=== PATIENT | female | born 1960 | race Caucasian/White ===

== ENCOUNTER 2019-03-27 07:06 | Day surgery (SDC) | payer OTHER ==
[~2019-03-27 07:06] MED LIST: Bupivacaine 0.5% 50 ML MDV ONE; Isosulfan Blue 5 ML SDV ONE; Lidocaine 1% with EPINEPHrine 1:100,000 50 ML MDV ONE; Lidocaine 2% 20 ML MDV INJECT ONE
[2019-03-27] MEDS ORDERED: Sodium Chloride 0.9% 1,000 ML IV SCH (07:30)
[2019-03-27] MEDS ORDERED: Benzocaine/Cetylpyridinium/Menthol Lozenge MUCMEM PRN (08:04)
[2019-03-27] MEDS ORDERED: diphenhydrAMINE 50 MG/ML SDV IVPUSH PRN (08:04)
[2019-03-27] MEDS ORDERED: Promethazine 25 MG/ML SDV IM PRN (08:04)
[2019-03-27] MEDS ORDERED: hydrOXYzine HCl 100 MG/2 ML SDV IM PRN (08:04)
[2019-03-27] MEDS ORDERED: Ondansetron 4 MG/2 ML SDV IVPUSH PRN (08:04)
[2019-03-27] MEDS ORDERED: fentaNYL 100 MCG/2 ML SDV IVPUSH PRN ×2 (08:04)
[2019-03-27] MEDS ORDERED: Acetaminophen/HYDROcodone 325-5 MG Tab PO PRN ×2 (08:04)
[2019-03-27] MEDS ORDERED: Lidocaine 1% 20 ML MDV INJECT ONE (08:19)
[2019-03-27] MEDS ORDERED: Propofol 200 MG/20 ML SDV ONE ×2 (09:03→10:20)
[2019-03-27] MEDS ORDERED: Midazolam 1 MG/ML 2 ML SDV ONE (09:04)
[2019-03-27] MEDS ORDERED: fentaNYL 100 MCG/2 ML SDV ONE (10:26)
[2019-03-27] MEDS ORDERED: Succinylcholine 200 MG/10 ML MDV ONE (10:31)
[2019-03-27] MEDS ORDERED: Ondansetron 4 MG/2 ML SDV ONE (10:37)
[2019-03-27] MEDS ORDERED: Dexamethasone 4 MG/ML SDV ONE (10:37)
[2019-03-27] MEDS ORDERED: Rocuronium 50 MG/5 ML Vial ONE (10:40)
[2019-03-27] MEDS ORDERED: Neostigmine Methylsulfate 1 MG/ML 5 ML Syringe ONE (10:41)
[2019-03-27] MEDS ORDERED: Glycopyrrolate 0.2 MG/ML 5 ML MDV ONE (10:41)
[2019-03-27] MEDS ORDERED: fentaNYL 250 MCG/5 ML SDV ONE (11:03)
--- NOTE | 2019-03-27 11:14 | MY ---
Ultrasound guided wire localization left breast CLINICAL HISTORY: Left breast mass FINDINGS: Patient was scanned through the left breast. Asymmetric hypoechoic focus with a breast biopsy marker was localized and skin was marked. Skin was then cleaned prepped and draped. 2% Xylocaine local anesthesia was applied to the skin and subcutaneous changes tissue towards the target. A Kopan needle was then passed towards the target under ultrasound guidance. The distal portion of the needle was difficult to see. The needle was contiguous to the marker. The wire was advanced. Needle was removed. Patient was sent for two-view mammogram. 2 VIEW POSTPROCEDURE MAMMOGRAM: Findings: The wire was contiguous to the marker within the lesion. The stiffener past to the marker by approximately 2.5 cm.. Wire position was discussed with Dr. Celis heart surgery. IMPRESSION: Successful wire localization of the left breast lesion with a biopsy marker in place. SPECIMEN RADIOGRAPH: 2 views of the breast biopsy specimen contain the asymmetric density within the breast as well as the biopsy marker and localization wire. The asymmetric density extends to the margin of the specimen.
[2019-03-27] MEDS ORDERED: ceFAZolin 2 GM in Premix Bag 1 BAG IV ONE (11:30)
[2019-03-27] MEDS ORDERED: Ketorolac 60 MG/2 ML SDV ONE (12:19)
[2019-03-27] MEDS ORDERED: Ketorolac 30 MG/ML SDV IM SCH (18:00)
[2019-03-27] MEDS ORDERED: ceFAZolin 2 GM in Sodium Chloride 0.9% 100 ML IV SCH (18:00)
[2019-03-28] MEDS ORDERED: Enoxaparin 40 MG/0.4 ML Syringe SUBCUT SCH (09:00)
--- NOTE | 2019-03-28 12:01 | OR ---
DATE OF PROCEDURE: 03/27/2019 PROCEDURES: 1. Excision of breast cancer via lumpectomy, left breast. 2. Excision of axillary lymph nodes, enlarged, labeled sentinel node #1. 3. Excision of lymph nodes, left axilla, labeled sentinel node #2. PATHOLOGY: 1. Left breast specimen #1 (main lesion) with single stitch silk superior, double stitch silk lateral, and single stitch Vicryl posterior. 2. Left breast tissue (posterior margin) with silk single stitch anterior, silk double stitch superior, and Vicryl single stitch laterally. 3. [place] node #1. 4. [place] node #2. COMPLICATIONS: None. SURGEON: Conner Celis MD MONUMENT SETTER HELPER: None. PREOPERATIVE DIAGNOSIS: Breast carcinoma. POSTOPERATIVE DIAGNOSIS: Breast carcinoma. RISKS: This pleasant 58-year-old female was discussed of risks, benefits, alternatives, and limitations multiple times. Prior to surgery, we again reviewed the fact that lumpectomy may require radiation, and we also discussed other risks of axillary dissection including infection, bleeding; injury to nerves, blood vessels, musculoskeletal injury; and permanent chronic lymphedema. We also discussed false-positives and false-negatives, the requirement for reoperation due to positive margins or change in the pathological diagnosis. We also discussed seroma, hematoma, and other risks not listed here. The patient understands these risks and wished to proceed. PROCEDURE IN DETAIL: The patient was placed in supine position. The left breast was readily identified, and the wire was located. This was transected so it would not interact with any drape-type materials. The skin was anesthetized as the patient was originally under MAC anesthetic, but subsequently converted to general per Anesthesia's concerns. A radial incision was made, and this was carried down tracking the wire as dissection continued. The depth of the wire and lesion at the 3 o'clock position was 5.5 cm per review with the radiologist preoperatively. Once approximately 2 cm within the lesion was identified, a widening base was then created. Using electrocautery, wide margins were able to be achieved based upon gross determination. The specimen was marked with sutures prior to removal and completion of the resection. On a gross examination of the specimen, the posterior margin was concerning due to its proximity. Therefore, a second specimen would be extracted to ensure proper margins. Both of these specimens were marked prior to removal and were described as in the section above labeled pathology. Once both of these were excised, hemostasis was controlled with electrocautery. Lap would be placed and oriented. A separate incision was made along the pectoralis border to identify the lymph nodes. This was approximately 4 cm in size. This was carried down with electrocautery to and through the fascia. Once the fat-colored changes were noted, the axilla was inspected. The lymph nodes themselves were essentially in one large cluster. Although, one large cluster in proximity, there were two separate groupings. The first was rather large in size; therefore, this would be labeled as sentinel nodes. I explained, however, they are large abnormal nodes requiring pathological evaluation. The sentinel node group #2 had blue color to it, and the gamma probe was registered in 435 in vivo. Ex vivo was similar to this. Both of these lymph node clusters were removed using clipping and blunt dissection. Of note, once the lymph nodes were removed, way less than 1% of background radiation was noted. All of the areas were inspected. No evident injury to thoracodorsal, long thoracic nerves nor axillary contents. This was all inspected and electrocautery was very minimal, but used to control any drainage. To control any seroma formation, a 10 flat Dejuan-Palacios drain would be used. However, these two incisions were of closer proximity and the wall between the two excision areas could be used to pass a single drain through without difficulty. Once this was done, the subcutaneous tissues were approximated with Vicryl sutures and tuan were applied. Dressings were applied. The patient tolerated the procedure well. Local anesthetic was also injected at both incisions. Conner Celis MD /[id number]
--- NOTE | 2019-03-28 15:25 | OR ---
DATE OF PROCEDURE: 03/27/2019 PROCEDURES: 1. Injection of technetium-99m radioisotope for identification of sentinel node, left axilla. 2. Lymphazurin blue injection to identify sentinel node, left axilla. COMPLICATIONS: None. SURGEON: Conner Celis MD SCOOP OPERATOR: None. RISKS: Risks, benefits, alternatives, and limitations including, but not limited to infection, bleeding, false-positives and false-negatives, and allergic reactions were explained to the patient, who wished to proceed. PROCEDURE IN DETAIL: The patient was placed in supine position. The left breast with the tumor at 3 o'clock was readily identified and injection would be between the nipple and the tumor itself. This was injected in three separate aliquots with a subcutaneous/subdermal injection. This was prepped prior to this. A total of 3 mL of Lymphazurin blue would be injected also subcutaneously and intradermally without difficulty. The breast was then massaged to . The patient tolerated the procedure well. Conner Celis MD /[id number]
== END 2019-03-27 18:11 | disposition home or self-care (01) ==
LOC: JP.SDS 07:06
PROVIDERS: ATTEND Surgery
DX: C50.812 Malignant neoplasm of overlapping sites of left female breast (principal); I25.10 Atherosclerotic heart disease of native coronary artery without angina pectoris; E03.9 Hypothyroidism, unspecified; E78.5 Hyperlipidemia, unspecified; K21.9 Gastro-esophageal reflux disease without esophagitis; F32.9 Major depressive disorder, single episode, unspecified; M54.81 Occipital neuralgia; E66.9 Obesity, unspecified; Z68.37 Body mass index [BMI] 37.0-37.9, adult; Z17.0 Estrogen receptor positive status [ER+]; Z79.1 Long term (current) use of non-steroidal anti-inflammatories (NSAID); Z79.899 Other long term (current) drug therapy
CPT/HCPCS: 19285; 19301; 36415; 38525; 38792; 38900; 76098; 77065; 86850; 86900; 86901; 88307; 88331; 88332; 88342; 97161; 97535; A9270; J0330; J0690; J1100; J1885; J2250; J2405; J2704; J2710; J3010; J3410; J3490; J7030; Q9968

== ENCOUNTER 2019-04-06 07:50 | Day surgery (SDC) | payer OTHER ==
[~2019-04-06 07:50] MED LIST changes: -Isosulfan Blue 5 ML SDV ONE; -Lidocaine 2% 20 ML MDV INJECT ONE; +Midazolam 1 MG/ML 2 ML SDV ONE; +Propofol 200 MG/20 ML SDV ONE; +Sodium Chloride 0.9% 1,000 ML IV SCH; +fentaNYL 100 MCG/2 ML SDV ONE
[2019-04-06] MEDS ORDERED: ceFAZolin 2 GM in Premix Bag 1 BAG IV ONE (07:59)
[2019-04-06] MEDS ORDERED: Dexamethasone 4 MG/ML SDV ONE (09:29)
[2019-04-06] MEDS ORDERED: Scopolamine 1.5 MG Transdermal Patch ONE (09:29)
[2019-04-06] MEDS ORDERED: Ondansetron 4 MG/2 ML SDV ONE (09:29)
[2019-04-06] MEDS ORDERED: Propofol 200 MG/20 ML SDV ONE (09:46)
[2019-04-06] MEDS ORDERED: fentaNYL 100 MCG/2 ML SDV IVPUSH ONE ×2 (10:13→10:35)
[2019-04-06] MEDS ORDERED: Acetaminophen/oxyCODONE 325-10 MG Tab PO PRN (11:01)
--- NOTE | 2019-04-07 08:18 | OR ---
DATE OF PROCEDURE: 04/06/2019 SURGEON: Conner Celis MD PROCEDURE: Excision, left breast margin. PREOPERATIVE DIAGNOSIS: Breast malignancy. POSTOPERATIVE DIAGNOSIS: Breast malignancy. COMPLICATION: None. FLOOR NURSE: None. SPECIMEN: Superior-anterior margin with a single stitch placed superior, double stitch placed laterally, and double Vicryl stitch placed anteriorly. Of note, this is excision of a curvilinear margin, however, this is the anterior-superior margin. PROCEDURE IN DETAIL: The patient was placed in supine position. The skin was anesthetized with lidocaine. The previous tuan were removed. The margin was excised using electrocautery. The margins were marked with the single silk stitch superior, double silk lateral, and double Vicryl anterior prior to removal of the specimen from the patient. The remnant cavity was inspected. No other abnormalities were noted. This was then thoroughly irrigated and closed with 3-0 Vicryl and tuan. The patient tolerated the procedure well. Conner Celis MD /[id number]
== END 2019-04-06 13:30 | disposition home or self-care (01) ==
LOC: JP.SDS 07:50
PROVIDERS: ATTEND Surgery
DX: D05.02 Lobular carcinoma in situ of left breast (principal); E78.00 Pure hypercholesterolemia, unspecified; E03.9 Hypothyroidism, unspecified; K21.9 Gastro-esophageal reflux disease without esophagitis
CPT/HCPCS: 19301; 88307; A9270; J0690; J1100; J2250; J2405; J2704; J3010; J3490; J7030

== ENCOUNTER 2019-09-08 07:42 | Day surgery (SDC) | payer OTHER ==
[2019-09-08] MEDS ORDERED: Lactated Ringers 1,000 ML IV SCH (07:45)
[2019-09-08] MEDS ORDERED: fentaNYL 100 MCG/2 ML SDV ONE (09:02)
[2019-09-08] MEDS ORDERED: Midazolam 1 MG/ML 2 ML SDV ONE (09:02)
[2019-09-08] MEDS ORDERED: Propofol 200 MG/20 ML SDV ONE (09:02)
--- NOTE | 2019-09-08 13:25 | OR ---
DATE OF PROCEDURE: 09/08/2019 SURGEON: Vincent Pierre MD PREOPERATIVE DIAGNOSIS: History of Saeed's esophagus. POSTOPERATIVE DIAGNOSES: Hiatal hernia, history of Saeed's esophagus. PROCEDURE PERFORMED: Esophagogastroduodenoscopy with biopsy of gastroesophageal junction. ANESTHESIA: IV anesthesia with monitored anesthesia care. INDICATION: This 58-year-old white female is here for an upper endoscopy because of a history of Saeed's esophagus. This was diagnosed a year ago at upper endoscopy. There was no dysplasia. I counseled her for upper endoscopy with possible biopsy, including risks and alternatives, and she gave her informed consent to proceed. DESCRIPTION OF PROCEDURE: The patient was placed in the left lateral decubitus position. IV anesthesia was administered by the anesthesia service. Time-out was held. The flexible video Olympus upper endoscope was passed through her mouth, down her esophagus, and into her stomach. The scope was easily passed through the pylorus, into the duodenum, reaching its third portion. The scope was then slowly withdrawn, examining the mucosa throughout. The duodenal mucosa appeared unremarkable. The scope was brought up through the pylorus. The antrum appeared unremarkable. The scope was retroflexed. The proximal stomach was unremarkable, except for an obvious hiatal hernia. The scope was straightened and brought up through the hiatal hernia. The Z-line was not straight with gastric mucosa fingers going proximally up into the esophagus. We obtained multiple, totalling at least, 6 biopsies of the gastroesophageal junction. The scope was then brought proximally through the remainder of the esophagus, which otherwise appeared unremarkable, and it was removed. She tolerated the procedure well. Vincent Pierre MD /[id number]
== END 2019-09-08 11:10 | disposition home or self-care (01) ==
LOC: JP.SDS 07:42
PROVIDERS: ATTEND Surgery
DX: K22.70 Barrett's esophagus without dysplasia (principal); K44.9 Diaphragmatic hernia without obstruction or gangrene; K20.9 Esophagitis, unspecified; K21.9 Gastro-esophageal reflux disease without esophagitis; E03.9 Hypothyroidism, unspecified
CPT/HCPCS: 43239; J2250; J2704; J3010; J7120; 88305

== ENCOUNTER 2021-10-15 18:20 | Emergency (ER) | payer OTHER ==
--- NOTE | 2021-10-15 19:05 | EDM.PDOC ---
ED HPI GENERAL MEDICAL PROBLEM - General Chief Complaint: Allergic Reaction Stated Complaint: ALLERGIC REACTION Time Seen by Provider: 10/15/21 18:45 Source of Information: Reports: Patient, Family History Limitations: Reports: No Limitations - History of Present Illness INITIAL COMMENTS - FREE TEXT/NARRATIVE: 60-year-old female that has had recurring hives for the past 48 hours. Benadryl seems to help for a few hours but she is having tenderness in the bottom of her feet and when she drinks something it hurts her esophagus. This happened to her 10 years ago and they were not sure what caused it. She is on no new medications, otherwise feels fine. Duration: Day(s): (2 days) Location: Reports: Generalized Improves with: Reports: Medication (Benadryl seems to help) Associated Symptoms: Reports: No Other Symptoms Generalized Pain Score (Numeric/FACES): 6 - Related Data Allergies Allergy/AdvReac Type Severity Reaction Status Date / Time seasonal Allergy Other Uncoded 10/15/21 18:37 Home Meds: Home Meds Acetaminophen 650 mg PO Q4H PRN 08/20/17 [History] Levothyroxine 125 mcg PO DAILY 08/20/17 [History] Celecoxib [CeleBREX] 100 mg PO BID 09/15/18 [History] Cholecalciferol (Vitamin D3) [Vitamin D3] 2,000 unit PO DAILY 03/23/19 [History] Calcium Carbonate/Vitamin D3 [Calcium 1,000 + D3 Caplet] 2 each PO DAILY 09/05/19 [History] Omeprazole Magnesium [Prilosec Otc] 20 mg PO DAILY 09/08/19 [History] Tamoxifen [Nolvadex] 20 mg PO DAILY 10/15/21 [History] diphenhydrAMINE [Benadryl] 25 mg PO Q4H PRN 10/15/21 [History] Past Medical History HEENT History: Reports: Allergic Rhinitis, Impaired Vision Cardiovascular History: Reports: High Cholesterol Gastrointestinal History: Reports: Cholelithiasis, Colon Polyp, GERD, Hiatal Hernia Genitourinary History: Reports: Renal Calculus GLASS SETTER History: Reports: , Other (See Below) Other GLASS SETTER History: ovary removed 1989 Musculoskeletal History: Reports: Fracture, Other (See Below) Other Musculoskeletal History: joint pain Psychiatric History: Reports: Anxiety, Depression, Panic Attack Endocrine/Metabolic History: Reports: Hypothyroidism, Obesity/BMI 30+ Oncologic (Cancer) History: Reports: Breast, Other (See Below) Other Oncologic History: 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 - Infectious Disease History Infectious Disease History: Reports: Chicken Pox - Past Surgical History HEENT Surgical History: Reports: None Cardiovascular Surgical History: Reports: None GI Surgical History: Reports: Cholecystectomy, Colonoscopy, EGD, Other (See Below) Other GI Surgeries/Procedures: Hx Barretts Female Surgical History: Reports: Cervical Conization, Kidney stone extraction, Oophorectomy, Other (See Below) Other Female Surgeries/Procedures: Breast lumpectomy Endocrine Surgical History: Reports: None Musculoskeletal Surgical History: Reports: None Oncologic Surgical History: Reports: None Social & Family History - Family History Family Medical History: No Pertinent Family History - Tobacco Use Tobacco Use Status *Q: Never Tobacco User - Caffeine Use Caffeine Use: Reports: Coffee - Recreational Drug Use Recreational Drug Use: No ED ROS ALLERGIC REACTION - Review of Systems Review Of Systems: See Below Constitutional: Denies: Fever, Chills HEENT: Reports: Throat Pain (Deep throat and esophageal pain with swallowing). Denies: Vision Change Respiratory: Denies: Shortness of Breath, Cough Cardiovascular: Reports: Chest Pain (With swallowing) GI/Abdominal: Denies: Nausea, Vomiting Musculoskeletal: Reports: Foot Pain (Soles of her feet are painful) Skin: Reports: Other (See HPI) Neurological: Reports: No Symptoms ED EXAM GENERAL NO PERIP PULSE - Physical Exam Exam: See Below Exam Limited By: No Limitations General Appearance: Alert, No Apparent Distress Eye Exam: Bilateral Eye: Normal Inspection Head: Atraumatic Neck: Supple, Non-Tender Respiratory/Chest: Lungs Clear Cardiovascular: Regular Rate, Rhythm Neurological: Alert, Oriented Psychiatric: Normal Affect, Normal Mood Skin Exam: Other (Scattered urticarial-like lesions on the trunk and upper extremities, deeper vasculitic changes on the soles of both feet with tenderness to palpation) Course - Vital Signs Last Recorded V/S: Last Vital Signs Temp 98.3 F 10/15/21 18:36 Pulse 121 H 10/15/21 18:36 Resp 16 10/15/21 18:36 BP 165/112 H 10/15/21 18:36 Pulse Ox 96 10/15/21 18:36 - Orders/Labs/Meds Meds: Medications Discontinued Medications Generic Name Dose Route Start Last Admin Trade Name Freq PRN Reason Stop Dose Admin Methylprednisolone Sodium Succinate 125 mg 10/15/21 18:55 10/15/21 19:06 Methylprednisolone Sodium Succinate 125 Mg/2 Ml Sdv IM 10/15/21 18:56 125 mg ONETIME ONE Administration - Re-Assessments/Exams Free Text/Narrative Re-Assessment/Exam: 10/15/21 20:42 Patient was given 125 mg of IM Solu-Medrol, and will start a Medrol Dosepak tomorrow. She can return anytime if she is worsening despite treatment or develop shortness of breath or other concerns. If this becomes a recurring problem, allergy testing may be necessary. Departure - Departure Time of Disposition: 19:15 Disposition: Home, Self-Care 01 Clinical Impression: Urticaria - Discharge Information Instructions: Hives, [id number] Referrals: Monica Brennan PA-C [Primary Care Provider] - Forms: ED Department Discharge Care Plan Goals: Start Medrol Dosepak tomorrow as directed, and take until hives have resolved. Continue with Benadryl as needed for extra symptom control. Return anytime if worsening despite treatment. Sepsis Event Note (ED) - Evaluation Sepsis Screening Result: No Definite Risk - Focused Exam Vital Signs: Vital Signs Temp Pulse Resp BP Pulse Ox 10/15/21 18:36 98.3 F 121 H 16 165/112 H 96 10/15/21 18:33 98.3 F 121 H 16 165/112 H 96
[2021-10-15] MEDS: methylPREDNISolone Sodium Succinate 125 MG/2 ML SDV IM ONE (19:06)
== END 2021-10-15 19:16 | disposition home or self-care (01) ==
LOC: JP.ED 18:20
DX: L50.9 Urticaria, unspecified (principal); K21.9 Gastro-esophageal reflux disease without esophagitis; E03.9 Hypothyroidism, unspecified; E66.9 Obesity, unspecified; Z68.39 Body mass index [BMI] 39.0-39.9, adult; Z91.048 Other nonmedicinal substance allergy status; Z79.899 Other long term (current) drug therapy
CPT/HCPCS: 96372; 99283; J2930

== ENCOUNTER 2025-04-01 08:24 | Emergency (ER) | payer BC, OTHER ==
[2025-04-01 08:45] LABS: EOSINOPHILS ABSOLUTE AUTO 0.19 K/uL (0.00-0.40); EOSINOPHILS PERCENT AUTO 1.9 % (0.0-5.4); HEMATOCRIT 43.6 % (34.3-46.0); HEMOGLOBIN 14.7 g/dL (11.2-15.5); IMMATURE GRAN PERCENT AUTO 0.2 % (0.0-0.7); LYMPHOCYTES ABSOLUTE AUTO 2.17 K/uL (0.8-3.3); LYMPHOCYTES PERCENT AUTO 21.5 % (11.4-47.7); MEAN CORPUSCULAR HEMOGLOBIN 29.2 pg (31.6-35.5); MEAN CORPUSCULAR HGB CONC 33.7 g/dL (31.6-35.5); MEAN CORPUSCULAR VOLUME 86.5 fL (81.4-99.0); MONOCYTES ABSOLUTE AUTO 0.83 K/uL (0.20-0.90); MONOCYTES PERCENT AUTO 8.2 % (3.3-12.6); NEUTROPHILS ABSOLUTE AUTO 6.78 K/uL (1.0-7.6); NEUTROPHILS PERCENT AUTO 67.2 % (40.0-78.1); PLATELET COUNT,PLT 343 K/uL (130-375); RED BLOOD CELL COUNT 5.04 M/uL (3.77-5.24); WHITE BLOOD CELL COUNT,WBC 10.1 K/uL (3.2-11.0)
[2025-04-01 08:46] LABS: IMMATURE GRAN ABSOLUTE AUTO 0.02 K/uL (0.00-0.23)
[2025-04-01] MEDS: Nitroglycerin 0.4 MG Tab.SL ONE (08:51)
[2025-04-01] MEDS: Nitroglycerin 0.4 MG Tab.SL SL PRN (08:51)
[2025-04-01] MEDS: Aspirin 81 MG Tab.Chew PO ONE (08:51)
[2025-04-01 09:06] LABS: PROTHROMBIN TIME 10.1 sec (9.2-10.6); PTT,PARTIAL THROMBOPLSTIN TIME 27.3 sec (21.8-27.3)
[2025-04-01 09:13] LABS: ALANINE AMINOTRANSFERASE,ALT 26 U/L (12-78); ALBUMIN 3.9 g/dL (3.4-5.0); ALKALINE PHOSPHATASE 131 U/L (46-116); ANION GAP 12.1 mmol/L (5.0-14.0); ASPARTATE AMNIOTRANSFERASE,AST 17 U/L (15-37); BILIRUBIN TOTAL 0.4 mg/dL (0.2-1.0); BLOOD UREA NITROGEN,BUN 19 mg/dL (7-18); CALCIUM 9.4 mg/dL (8.5-10.1); CARBON DIOXIDE,CO2 25 mmol/L (21-32); CHLORIDE,CL 103 mmol/L (100-108); CREATININE 0.9 mg/dL (0.6-1.0); EST CRCL DRUG DOSING (CG) 47.65 mL/min; ESTIMATED GFR 71 mL/min (>60); GLUCOSE RANDOM 100 mg/dL (74-106); PRO B-TYPE NATRIUR PEPT,BNPPRO 53 pg/mL (5-125); SODIUM,NA 140 mmol/L (140-148)
[2025-04-01 09:15] LABS: TROPONIN I HIGH SENSITIVITY < 4.0 pg/mL (<=60.3)
[2025-04-01] MEDS: Ketorolac 30 MG/ML SDV IVPUSH ONE (09:41)
[2025-04-01] MEDS: Sodium Chloride 0.9% 500 ML IV ONE (09:41)
[2025-04-01] MEDS: Sodium Chloride 0.9% 10 ML Syringe FLUSH ONE (10:52)
[2025-04-01] MEDS: Iopamidol 755 Mg/ML 100 ML Bottle IV SCH (10:52)
[2025-04-01] MEDS: Sodium Chloride 0.9% 100 ML IV SCH (10:52)
[2025-04-01] MEDS: Acetaminophen 500 MG Tab PO ONE (12:34)
== END 2025-04-01 14:15 | disposition home or self-care (01) ==
LOC: JP.ED 08:24
DX: R07.89 Other chest pain (principal)
CPT/HCPCS: 36415; 71045; 71275; 80053; 83880; 84484; 85025; 85379; 85610; 85730; 93005; 96374; 99285; A9270; J1885; J7040; Q9967; 93010; 99284

== ENCOUNTER 2025-06-18 06:41 | Day surgery (SDC) | payer BC ==
[2025-06-18] MEDS ORDERED: Propofol 200 MG/20 ML SDV ONE (06:59)
[2025-06-18] MEDS ORDERED: fentaNYL 50 MCG/ML SDV ONE (06:59)
[2025-06-18] MEDS: Lactated Ringers 1,000 ML IV SCH (07:17)
[2025-06-18] MEDS ORDERED: Ondansetron 4 MG/2 ML SDV ONE (07:42)
[2025-06-18] MEDS ORDERED: Dexamethasone 4 MG/ML SDV ONE (07:42)
== END 2025-06-18 09:26 | disposition home or self-care (01) ==
LOC: JP.SDS 06:41
PROVIDERS: ATTEND Surgery
DX: K20.90 Esophagitis, unspecified without bleeding (principal); K44.9 Diaphragmatic hernia without obstruction or gangrene
CPT/HCPCS: 00731; 43239; 88305; J1100; J2405; J2704; J3010; J7120